=== PATIENT | female | born 1995 | race Caucasian/White ===

== ENCOUNTER 2017-04-21 14:16 | Emergency (ER) | payer BC ==
[~2017-04-21] VITALS: Ht 162.6 cm; Wt 61.5 kg
[2017-04-21 14:23] VITALS: BP 116/69; PULSE 73; TEMP 36.5; O2SAT 98; Ht 162.6 cm; Wt 61.5 kg
[2017-04-21] MEDS ORDERED: PENI500T2 PO (14:50)
[2017-04-21] MEDS ORDERED: IBUP-103 PO (14:52)
--- NOTE | 2017-04-21 16:27 | EMERGENCY ROOM VISIT NOTE ---
ED Visit Note First contact with patient: 14:26 CHIEF COMPLAINT: I think my gum is infected around my wisdom teeth. HISTORY OF PRESENT ILLNESS: Ms. Castillo is a 21-year-old white female who ambulates into the ED accompanied by female friend complaining of right mandibular dental pain. She reports a progressive pain around the gingiva associated with tooth 18. Initially it was mild and has gradually increased in intensity. She reports there is always a constant achy pain in the area but then when she chews food or brushes her teeth her pain becomes more sharp. At rest she rates her discomfort 4/10 and with those other activities she rates her discomfort 8/10. Her pain does radiate to the submandibular level on the left and intermittently into the temporal area on the left causing her headache. She has not identified any alleviating factors related to the pain. She reports she has been using ibuprofen without relief of her discomfort. Associated with her pain she does report today she noted some facial swelling in the area of her discomfort. He denies fevers, chills, sweats, skin eruptions, skin color changes, dizziness , lightheadedness, hearing changes, ear pain, ear drainage, recent dental trauma , sore throats, voice changes, difficulty swallowing, drooling, painful talking. REVIEW OF SYSTEMS: As noted above in History of Present Illness. 8 body systems were reviewed with this patient and found to be negative unless noted above otherwise. PMH: Patient denies. CURRENT MEDICATION: Patient denies.. ALLERGIES TO MEDICATION: Patient denies. SOCIAL HISTORY: Patient is currently University student; she feels safe in her home environment; she denies tobacco and alcohol use. PHYSICAL EXAM: Vital Signs: Date Time Temp Pulse Resp B/P (MAP) Pulse Ox O2 Delivery O2 Flow Rate FiO2 04/21/17 14:23 36.5 73 16 116/69 98 Room Air General: 21 year-old white female in mild distress due to pain, nontoxic appearing, afebrile and hemodynamically stable. Neurological: Awake, alert and oriented to person, place and time. Answering questions appropriately and following commands. Skin: Warm, dry and pink. Mild left facial swelling over the mandible without erythema. No palpable masses. Soft tissue lesions, rashes, or trauma noted. HEENT: Atraumatic and normocephalic. Facial swelling is noted above. Oral cavity is moist and pink. Airway is patent. Uvula is midline and no abscesses are seen. Speech is normal. No drooling. No intraoral trauma. It was noted that tooth #18 is erupting. Immediately surrounding tooth 18 there is mild erythema and edema over the gingiva. The tooth was tender to palpation. Only a portion of the tooth was seen and I did not see any decay or caries. Positive left submandibular lymphadenopathy but no cervical lymphadenopathy. ED COURSE: Patient is assessed as noted above. A chest medication list was reviewed. Patient is educated about her findings and instructed on her treatment plan; she verbalizes understanding and agreement with this plan. CLINIC IMPRESSION: Dental pain. Possible early dental abscess of tooth #18. DISPOSITION: Patient discharged home in stable condition; prior to departure she was reassessed and subjectively reported she was feeling the same. PLAN: Patient was prescribed Pen-Vee K 500 mg 4 times a day for 10 days. Patient is encouraged to alternate ibuprofen and acetaminophen every 3 hours for persistent pain. Patient was encouraged to use a liquid/mechanical soft diet over the next few days until relief of discomfort. Patient was encouraged to keep her mouth clean with brushing, flossing and gargling with saltwater 4-5 times a day. Patient was given the name of Dr. Mehta, oral surgeon, locally or follow-up care and treatment. Since she was a college student if she felt uncomfortable following up locally she was encouraged to contact her family dentist at home for possible referral and/or re-evaluation Patient was encouraged return the ED for worsening/uncontrolled pain, fevers, worsening facial swelling or any new/concerning symptoms.
== END 2017-04-21 14:53 | disposition home or self-care (01) ==
LOC: C.EDB 14:20 → C.EDD 14:53
DX: K08.89 Other specified disorders of teeth and supporting structures (principal)